=== PATIENT | female | born 1960 | race Caucasian/White ===

== ENCOUNTER 2024-01-21 08:32 | Emergency (ER) | payer SELFPAY ==
[~2024-01-21] VITALS: Ht 160 cm; Wt 144.5 kg
[2024-01-21 08:37] VITALS: TEMP 97.9
[2024-01-21] MEDS ORDERED: NS 1,000 ML IV ONE (09:30)
[2024-01-21] MEDS ORDERED: Ondansetron 4 MG/2 ML VIAL IV ONE (09:30)
[2024-01-21] MEDS ORDERED: Ketorolac 30 MG/ML VIAL IV ONE (09:30)
[2024-01-21 09:49] LABS: BASO # 0.1 K/mm3 (0.0-0.2); BASO % 0.6 % (0.0-2.0); EOS # 0.4 K/mm3 (0.0-0.7); EOS % 3.3 % (0.0-4.0); GRAN # 8.7 K/mm3 (1.4-6.5); GRAN % 74.9 % (42.2-75.2); HEMATOCRIT 49.6 % (37.0-47.0); HEMOGLOBIN 16.6 g/dl (12.5-16.0); LYMPH # 1.8 K/mm3 (1.2-3.4); LYMPH % 15.1 % (20.0-51.0); MEAN CELL VOLUME 95 fl (80.0-100.0); MEAN CORPUSCULAR HEMOGLOBIN 32 pg (27-31); MEAN CORPUSCULAR HGB CONC 34 g/dl (33.0-37.0); MEAN PLATELET VOLUME 9.9 fl (7.4-10.4); MONO # 0.7 K/mm3 (0.1-0.6); MONO % 5.6 % (1.7-9.3); PLATELET COUNT 331 K/mm3 (130-400); RED BLOOD COUNT 5.25 M/mm3 (4.10-5.30); REDCELL DISTRIBUTION WIDTH-CV 12.6 % (11.5-14.5)
[2024-01-21 10:11] LABS: ALBUMIN 3.7 g/dL (3.4-4.8); BILIRUBIN,TOTAL 0.3 mg/dL (0.2-1.2); CALCIUM 10.1 mg/dL (8.4-10.2); CREATININE, serum 0.83 mg/dL (0.57-1.11); POTASSIUM 4.3 mEq/L (3.5-4.5); TOTAL PROTEIN 8.6 g/dl (6.2-8.1)
[2024-01-21] MEDS ORDERED: NS 100 ML IV ONE (10:35)
[2024-01-21] MEDS ORDERED: Iohexol 300 - 100 ML VIAL IV ONE (10:35)
[2024-01-21 11:12] LABS: COLLECTION METHOD CLEAN CATCH
[2024-01-21 11:19] LABS: URINE APPEARANCE CLEAR (CLEAR/HAZY); URINE BLOOD NEGATIVE (NEGATIVE); URINE COLOR YELLOW (YELLOW); URINE GLUCOSE NEGATIVE (NEGATIVE); URINE KETONE NEGATIVE (NEGATIVE); URINE NITRATE POSITIVE (NEGATIVE); URINE PROTEIN(semi-quant) NEGATIVE (NEGATIVE); URINE UROBILINOGEN 0.2 E.U/dL (0.2-1.0)
[2024-01-21] MEDS ORDERED: CEPHALEXIN500 M1 PO (11:36)
[2024-01-21] MEDS ORDERED: cefTRIAXone 1 G in Water For Injection,Sterile 10 ML IV ONE (11:45)
[2024-01-21] MEDS ORDERED: droPERidol 2.5 MG/ML 2 ML VIAL IV ONE (11:45)
[2024-01-21] MEDS ORDERED: ZOFRAN ODT4 MG PO (11:55)
[2024-01-21] MEDS ORDERED: NAPROSYN500 MG PO (11:56)
[2024-01-21 12:00] VITALS: BP 102/57; PULSE 68
== END 2024-01-21 12:00 | disposition home or self-care (01) ==
LOC: COL.ER 08:32
PROVIDERS: Physician Assistant
DX: N39.0 Urinary tract infection, site not specified (principal); K76.0 Fatty (change of) liver, not elsewhere classified; K44.9 Diaphragmatic hernia without obstruction or gangrene; J44.9 Chronic obstructive pulmonary disease, unspecified; Z87.891 Personal history of nicotine dependence; Z79.899 Other long term (current) drug therapy
CPT/HCPCS: J0696; J1790; J1885; J2405; J7030; Q9967